=== PATIENT | female | born 1930 | race Caucasian/White ===

== ENCOUNTER → 2016-10-18 | Day surgery (SDC) | payer MEDICARE, BC ==
[~2016-10-18] MED LIST: ACETAMINOPHEN 1000 MG/100 ML VIAL IV ONE; ALEN40TA PO; BUPIVACAINE/EPINEPHRINE 0.25% PF 30 ML VIAL ONE; CENTTAB PO; COMB0.2S EACH EYE; DORZ2SOL EACH EYE; ISOSULFAN BLUE 50 MG/5 ML VIAL SQ ONE; LACTATED RINGER'S 1000 ML INJ 1,000 ML ONE; LATA0.002 EACH EYE; LEVO25TA4 PO; LIDOCAINE 1%/EPINEPHrine 1:100,000 SOLN 20 ML VIAL ONE; MESA400C2 PO; MIDAZOLAM HCL 2 MG/2 ML VIAL ONE; OCUVCAP PO; ONDANSETRON HCL 4 MG/2 ML VIAL IV PUSH ONE; OSCA200T PO; PROPOFOL 200 MG/20 ML AMP IV ONE; SYSTSOL9 EACH EYE; VANCOMYCIN HCL 1000 MG VIAL ONE; ZYRT10TA PO; ceFAZolin INJ 1,000 MG VIAL ONE
--- NOTE | 2016-10-20 11:25 | MP ---
cc: PRANAY NULL M.D., MARK DATE OF SURGERY: 10/18/2016 PROCEDURE 1. Excision sentinel lymph nodes right axilla x3. 2. 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 PREOPERATIVE DIAGNOSIS Deep invasive melanoma right shoulder. POSTOPERATIVE DIAGNOSIS Deep invasive melanoma right shoulder. ANESTHESIA LMA. SURGEON Nick ESTIMATED BLOOD LOSS Less than 10 mL. FLUIDS 300 mL crystalloid. COMPLICATIONS None. DRAINS None. SPECIMEN 1. [place] lymph nodes, right axilla. 2. Right axillary tissue. 3. Wide local excision right shoulder skin and subcutaneous tissue to pathology. PROCEDURE IN DETAIL The patient was seen in the Department of nuclear medicine where she underwent injection with technetium-99 sulfur colloid. She was then taken back down for imaging which demonstrated activity within the right axilla. This was marked by the radiologist. The patient was then taken to the operating room and was placed on the operating table in the supine position. After laryngeal mask anesthesia was instituted the patient was placed in a left lateral decubitus position with a beanbag. The axilla and the shoulder were prepped and draped in the field. A timeout was taken confirming the correct patient, site and procedures to be performed. An incision was made in the axilla and dissection carried down utilizing the probe. The lymph nodes did not appear to be blue; however, there was activity above background. A total of three lymph nodes were removed. No further activity above background was noted. The nodes were submitted for specimen analysis. With the axilla hemostatic, the wound was closed in two layers with interrupted 3-0 Vicryl suture and 5-0 PDS in a running subcuticular fashion. The wound was dressed with Steri-Strips and attention turned to the right shoulder. This had been previously injected with local anesthetic. An elliptical incision was made around the lesion with a 2 cm minimum measurement from the edge of any pigmented areas. This was carried down to the fascia. All skin and subcutaneous tissue was removed, oriented with silk sutures and passed off the table. The wound was then closed in two layers with interrupted 2-0 Vicryl suture and 5-0 PDS in a running subcuticular fashion. The wound was able to be brought together primarily without undue tension. This wound was then dressed with Steri-Strips and 4x4 applied over the top. The patient was extubated and taken back to the recovery room in stable condition. Sponge, needle and instrument counts were reported correct x2. MD TRINI Steele/DAVID /1:37 PM /11:15 AM
== END | disposition home or self-care (01) ==
LOC: ESDC 08:34
PROVIDERS: ATTEND Surgery Trauma Surgery
DX: C43.61 Malignant melanoma of right upper limb, including shoulder (principal)
CPT/HCPCS: 00400; 01610; 11606; 38525; 88305; 88307; 88341; 88342; J0131; J0690; J2250; J2405; J3010; J3370; J7120; Q9968

== ENCOUNTER → 2016-11-21 | Outpatient (CLI) | payer MEDICARE, BC ==
[~2016-11-21] MED LIST changes: -ACETAMINOPHEN 1000 MG/100 ML VIAL IV ONE; -BUPIVACAINE/EPINEPHRINE 0.25% PF 30 ML VIAL ONE; -ISOSULFAN BLUE 50 MG/5 ML VIAL SQ ONE; -LACTATED RINGER'S 1000 ML INJ 1,000 ML ONE; -LIDOCAINE 1%/EPINEPHrine 1:100,000 SOLN 20 ML VIAL ONE; -MIDAZOLAM HCL 2 MG/2 ML VIAL ONE; -ONDANSETRON HCL 4 MG/2 ML VIAL IV PUSH ONE; -PROPOFOL 200 MG/20 ML AMP IV ONE; -VANCOMYCIN HCL 1000 MG VIAL ONE; -ceFAZolin INJ 1,000 MG VIAL ONE
[2016-11-21 13:54] LABS: HEMATOCRIT 40.3 % (35.0-46.0); MEAN CELL VOLUME 96.6 FL (80.0-100.0); MEAN CORPUSCULAR HEMOGLOBIN 32.7 PG (27.0-34.0); MEAN CORPUSCULAR HGB CONC 33.8 % (32.0-36.0); PLATELET COUNT 218 TH/MM3 (150-450); RED BLOOD COUNT 4.18 MIL/MM3 (4.00-5.30); RED CELL DISTRIBUTION WIDTH 13.3 % (11.6-17.2); REVIEW FLAG FINAL; WHITE BLOOD COUNT 7.6 TH/MM3 (4.0-11.0)
[2016-11-21 14:12] LABS: ALT (GPT) 16 U/L (10-53); ANION GAP 7 MEQ/L (5-15); BICARBONATE 31.3 MEQ/L (21.0-32.0); BLOOD UREA NITROGEN 13 MG/DL (7-18); CHLORIDE 105 MEQ/L (98-107); GLUCOSE,FASTING 93 MG/DL (74-99); POTASSIUM 4.4 MEQ/L (3.5-5.1); SODIUM (NA) 143 MEQ/L (136-145)
[2016-11-21 14:22] LABS: ALKALINE PHOSPHATASE 61 U/L (45-117); AST (GOT) 18 U/L (15-37); GLOMERULAR FILTRATION RATE 78 ML/MIN (>89); LDL CHOLESTEROL 90 MG/DL (0-99); LDL CHOLESTEROL DIRECT 93 MG/DL (0-99); TOTAL BILIRUBIN ADULT 0.4 MG/DL (0.2-1.0)
== END ==
LOC: PLAB 08:14
PROVIDERS: ATTEND Family Medicine
DX: E05.90 Thyrotoxicosis, unspecified without thyrotoxic crisis or storm (principal); E03.0 Congenital hypothyroidism with diffuse goiter; E78.5 Hyperlipidemia, unspecified; R41.2 Retrograde amnesia; K51.90 Ulcerative colitis, unspecified, without complications
CPT/HCPCS: 36415; 80053; 80061; 83721; 84443; 85027

== ENCOUNTER → 2017-03-09 | Outpatient (CLI) | payer MEDICARE, BC ==
[~2017-03-09] MED LIST changes: +CALC1TAB55 PO; +CETI-1 PO; +MULT-65 PO; +SULF500T3 PO; +SYSTSOL EACH EYE
[2017-03-09 09:33] LABS: HEMATOCRIT 40.6 % (35.0-46.0); MEAN CELL VOLUME 97.2 FL (80.0-100.0); MEAN CORPUSCULAR HEMOGLOBIN 32.6 PG (27.0-34.0); MEAN CORPUSCULAR HGB CONC 33.6 % (32.0-36.0); PLATELET COUNT 223 TH/MM3 (150-450); RED BLOOD COUNT 4.18 MIL/MM3 (4.00-5.30); RED CELL DISTRIBUTION WIDTH 14.4 % (11.6-17.2); REVIEW FLAG FINAL
[2017-03-09 09:48] LABS: ANION GAP 8 MEQ/L (5-15); AST (GOT) 14 U/L (15-37); BICARBONATE 27.2 MEQ/L (21.0-32.0); BLOOD UREA NITROGEN 12 MG/DL (7-18); CHLORIDE 105 MEQ/L (98-107); GLOMERULAR FILTRATION RATE 85 ML/MIN (>89); GLUCOSE,FASTING 82 MG/DL (74-99); POTASSIUM 3.9 MEQ/L (3.5-5.1); SODIUM (NA) 140 MEQ/L (136-145)
[2017-03-09 10:01] LABS: ALKALINE PHOSPHATASE 62 U/L (45-117); ALT (GPT) 16 U/L (10-53); LDL CHOLESTEROL 77 MG/DL (0-99); LDL CHOLESTEROL DIRECT 90 MG/DL (0-99); TOTAL BILIRUBIN ADULT 0.5 MG/DL (0.2-1.0)
[2017-03-09 13:56] LABS: HEMOGLOBIN A1b 1.6 %; HEMOGLOBIN Ao 86.4 %; HEMOGLOBIN LA1C 1.8 %; HEMOGLOBIN P3 3.5 %
== END ==
LOC: PLAB 07:45
PROVIDERS: ATTEND Family Medicine
DX: R53.83 Other fatigue (principal); E78.2 Mixed hyperlipidemia; I10 Essential (primary) hypertension; R73.01 Impaired fasting glucose
CPT/HCPCS: 36415; 80053; 80061; 83036; 83721; 84443; 85027

== ENCOUNTER → 2017-08-07 | Outpatient (CLI) | payer MEDICARE, BC ==
[~2017-08-07] MED LIST changes: -CENTTAB PO; -MESA400C2 PO; -OSCA200T PO; -SYSTSOL9 EACH EYE; -ZYRT10TA PO
[2017-08-07 10:27] LABS: HEMATOCRIT 38.7 % (35.0-46.0); HEMOGLOBIN 13.5 GM/DL (11.6-15.3); MEAN CORPUSCULAR HEMOGLOBIN 33.8 PG (27.0-34.0); MEAN CORPUSCULAR HGB CONC 34.8 % (32.0-36.0); MEAN PLATELET VOLUME 7.3 FL (7.0-11.0); PLATELET COUNT 207 TH/MM3 (150-450); RED BLOOD COUNT 3.99 MIL/MM3 (4.00-5.30); WHITE BLOOD COUNT 6.7 TH/MM3 (4.0-11.0)
[2017-08-07 10:51] LABS: CHOLESTEROL 196 MG/DL (120-200)
[2017-08-07 10:56] LABS: ALBUMIN 3.5 GM/DL (3.4-5.0); AST (GOT) 15 U/L (15-37); BICARBONATE 30.9 MEQ/L (21.0-32.0); BLOOD UREA NITROGEN 14 MG/DL (7-18); CALCIUM 8.2 MG/DL (8.5-10.1); CHLORIDE 107 MEQ/L (98-107); CREATININE 0.68 MG/DL (0.50-1.00); GLOMERULAR FILTRATION RATE 82 ML/MIN (>89); GLUCOSE,FASTING 80 MG/DL (74-99); SODIUM (NA) 142 MEQ/L (136-145)
[2017-08-07 11:00] LABS: ALKALINE PHOSPHATASE 58 U/L (45-117); ALT (GPT) 15 U/L (10-53); FREE T4 0.94 NG/DL (0.76-1.46); HDL CHOLESTEROL 81.6 MG/DL (40.0-60.0); LDL CHOLESTEROL 84 MG/DL (0-99); LDL CHOLESTEROL DIRECT 100 MG/DL (0-99); TOTAL BILIRUBIN ADULT 0.3 MG/DL (0.2-1.0); TOTAL PROTEIN 6.7 GM/DL (6.4-8.2); TRIGLYCERIDES 153 MG/DL (42-150)
[2017-08-07 16:57] LABS: HEMOGLOBIN A1C 5.2 % (4.3-6.0)
== END ==
LOC: PLAB 07:54
PROVIDERS: ATTEND Family Medicine
DX: E78.2 Mixed hyperlipidemia (principal); I10 Essential (primary) hypertension; E03.8 Other specified hypothyroidism; R73.01 Impaired fasting glucose
CPT/HCPCS: 36415; 80053; 80061; 83036; 83721; 84439; 84443; 85027